=== PATIENT | female | born 1955 | race Caucasian/White ===

== ENCOUNTER 2019-07-12 21:22 | Observation (INO) | payer OTHER ==
[~2019-07-12] VITALS: Ht 170.2 cm; Wt 104.3 kg
[2019-07-12] MEDS ORDERED: ASPIRIN 81 MG CHEW TAB PO ONE (22:15)
[2019-07-12] MEDS ORDERED: LORAZEPAM INJ 2 MG/ML VIAL IV ONE (22:30)
[2019-07-12 22:52] LABS: BASOPHILS % 0.5 % (0.0-1.0); EOSINOPHILS # (AUTO) 0.1 (0.0-0.4); EOSINOPHILS % 1.7 % (0.0-6.0); HEMATOCRIT 38.1 % (34.2-44.1); HEMOGLOBIN 12.7 g/dL (12.0-16.0); LYMPHOCYTES # (AUTO) 2.1 (1.0-3.2); LYMPHOCYTES % 25.6 % (18.0-39.1); MEAN CORPUSCULAR HEMOGLOBIN 31.5 pg (28-32); MEAN CORPUSCULAR HGB CONC 33.3 g/dL (31-35); MEAN CORPUSCULAR VOLUME 94.5 fL (81-99); MONOCYTES # (AUTO) 0.7 (0.2-0.8); MONOCYTES % 8.3 % (4.4-11.3); NEUTROPHILS # (AUTO) 5.1 (2.1-6.9); NEUTROPHILS % 63.5 % (38.7-80.0); PLATELET COUNT 285 x10e3/uL (140-360); RED BLOOD COUNT 4.03 x10e6/uL (3.6-5.1); RED CELL DISTRIBUTION WIDTH 11.9 % (11.7-14.4)
--- NOTE | 2019-07-12 22:59 | Diagnostic Imaging Report ---
Examination: Single AP view of the chest. COMPARISON: None. INDICATION: Chest pressure, chest pain IMPRESSION: 1. Lines and Tubes: None 2. Lungs are grossly clear. No consolidation or effusion. 3. Cardiomediastinal silhouette is normal. Pulmonary vasculature is normal. 4. No acute bony abnormalities. Signed by: Dr. Cam Sesay M.D. on 07/12/2019 10:56 PM
[2019-07-12 23:01] LABS: INR 0.83; PARTIAL THROMBOPLASTIN TIME 20.1 seconds (23.8-35.5); PROTHROMBIN TIME 11.9 seconds (11.9-14.5)
[2019-07-12 23:05] LABS: ALANINE AMINOTRANSFERASE 27 IU/L (0-55); ALBUMIN 3.8 g/dL (3.5-5.0); ALBUMIN/GLOBULIN RATIO 0.8 (0.8-2.0); ALKALINE PHOSPHATASE 131 IU/L (40-150); ANION GAP 16.5 mmol/L (8-16); BLOOD UREA NITROGEN 11 mg/dL (7-26); BUN/CREATININE RATIO 11 (6-25); CALCIUM 10.9 mg/dL (8.4-10.2); CARBON DIOXIDE 24 mmol/L (22-29); CHLORIDE 102 mmol/L (98-107); CREATINE KINASE 71 IU/L (29-168); EST GLOMERULAR FILTRATION RATE 56 ML/MIN (60-); GLUCOSE 117 mg/dL (74-118); POTASSIUM 3.5 mmol/L (3.5-5.1); SODIUM 139 mmol/L (136-145)
[2019-07-12 23:18] LABS: CLARITY,URINE CLOUDY (CLEAR); COLOR,URINE YELLOW (YELLOW); LEUKOCYTE ESTERASE ,URINE TRACE (NEGATIVE)
[2019-07-12 23:19] LABS: BACTERIA,URINE MANY /HPF; BILIRUBIN,URINE NEGATIVE (NEGATIVE); EPITHELIAL CELLS,URINE FEW /LPF; KETONES,URINE TRACE (NEGATIVE); NITRITE,URINE NEGATIVE (NEGATIVE); PROTEIN,URINE DIPSTICK TRACE (NEGATIVE); RBC,URINE 0-5 /HPF (0-5); URINE UROBILINOGEN 0.2 mg/dL (0.2 - 1)
[2019-07-12 23:20] LABS: AMORPHOUS SEDIMENT,URINE MANY (FEW)
[2019-07-13] MEDS ORDERED: LORAZEPAM INJ 2 MG/ML VIAL IV PRN (00:30)
[2019-07-13] MEDS ORDERED: SODIUM CHLORIDE FLUSH 10 ML SYR INJ PRN (00:30)
[2019-07-13] MEDS ORDERED: QUETIAPINE FUMARATE 25 MG TAB PO SCH (00:30)
[2019-07-13] MEDS ORDERED: LORAZEPAM INJ 2 MG/ML VIAL IV ONE (00:30)
[2019-07-13] MEDS ORDERED: CEFTRIAXONE SOD 1 GM/NS 50 ML 50 ML IV SCH (00:30)
[2019-07-13] MEDS ORDERED: ASPIRIN 81 MG CHEW TAB PO ONE (00:30)
[2019-07-13] MEDS ORDERED: ONDANSETRON HCL INJ 2MG/ML 2ML 2 MG/ML VIAL IV PRN (00:30)
[2019-07-13] MEDS ORDERED: MORPHINE SULFATE 2 MG/ML SYR 1ML IV PRN (00:30)
[2019-07-13] MEDS ORDERED: FAMOTIDINE 20 MG/2 ML VIAL IV SCH ×2 (00:30→09:00)
--- OUTSIDE RECORDS SUMMARY | 2019-07-13 00:36 | XMS REPORT ---
[facility] Phone Unavailable Care Team Providers Care Transitional Care Liaison Name Role Phone Iman CHAMBERLAIN Unavailable Unavailable Problems This patient has no known problems. Allergies, Adverse Reactions, Alerts This patient has no known allergies or adverse reactions. Medications This patient has no known medications. Results Test Description Test Time Test Comments Text Results Atomic Results Result Comments CHEST SINGLE (PORTABLE) 2019-07-12 22:55:00 [place] [address] Patient Name: LIZETH VICENTE MR #: [id number] : 1955 Age/Sex: 63/F Req #: [id number] Adm Physician: Ordered by: KATY CHAMBERLAIN MD Report #: [id number] Location: ER Room/Bed: Procedure: [id number] DX/CHEST SINGLE (PORTABLE) Exam Date: 07/12/19 Exam Time: 2219 REPORT STATUS: Signed Examination: Single AP view of the chest. COMPARISON: None. INDICATION: Chest pressure, chest pain IMPRESSION: 1. Lines and Tubes: None 2. Lungs are grossly clear. No consolidation or effusion. 3. Cardiomediastinal silhouette is normal. Pulmonary vasculature is normal. 4. No acute bony abnormalities. Signed by: Dr. Darlene Sesay M.D. on 07/12/2019 10:56 PM Dictated By: DARLENE SESAY MD 53 Transcribed By: VANI on 07/12/192255 COPY TO: KATY CHAMBERLAIN MD
--- NOTE | 2019-07-13 00:59 | NUR ---
pt states she cont to feel anxious, medicated per orders. awake alert skin w/d resp nonlab. nad noted.
--- NOTE | 2019-07-13 01:41 | NUR ---
pt reports feels better after medications. placed on hospital bed for comfort. vss. awake alert skin w/d resp nonlab, nad noted.
[2019-07-13] MEDS ORDERED: MOTRIN800 MG PO (05:44)
[2019-07-13] MEDS ORDERED: LEVOTHYROXINE75 MCG PO (05:44)
[2019-07-13] MEDS ORDERED: CARISOPRODOL350 MG PO (05:44)
[2019-07-13] MEDS ORDERED: NORCO 10-325 T1 EACH PO (05:44)
[2019-07-13] MEDS ORDERED: VITAMIN D400 UNIT PO (05:44)
[2019-07-13] MEDS ORDERED: CYMBALTA60 MG PO (05:44)
[2019-07-13] MEDS ORDERED: ZOLPIDEM TARTRA10 MG PO (05:44)
[2019-07-13] MEDS ORDERED: QUETIAPINE FUM300 MG PO (05:44)
[2019-07-13] MEDS ORDERED: OMEPRAZOLE20 MG PO (05:44)
[2019-07-13] MEDS ORDERED: LOSARTAN POTASS50 MG PO (05:44)
--- NOTE | 2019-07-13 05:45 | NUR ---
AM LABS, COLLECTED AND SENT. AWAKE ALERT SKIN W/D RESP NONLAB. NAD NOTED. DENIES CHEST PAIN OR SOB. VSS. MED RECONCILIATION COMPLETED WITH PATIENT, DR CHAMBERLAIN REVIEWED MED REC
[2019-07-13] MEDS ORDERED: HYDROCODONE/APAP 10MG-325MG TAB PO PRN (06:00)
[2019-07-13] MEDS ORDERED: IBUPROFEN 800 MG PO PRN (06:00)
[2019-07-13 06:11] LABS: CREATINE KINASE 82 IU/L (29-168)
[2019-07-13] MEDS ORDERED: IBUPROFEN 400 MG TAB PO PRN (06:15)
--- NOTE | 2019-07-13 06:56 | NUR ---
REPORT TO HARSHA ROCKWELL
[2019-07-13] MEDS ORDERED: NON-FORMULARY MEDICATION (Duloxetine Hcl (Cymbalta) 60 MG) PO SCH (09:00)
[2019-07-13] MEDS ORDERED: LEVOTHYROXINE SODIUM 75 MCG TAB PO SCH (09:00)
[2019-07-13] MEDS ORDERED: LOSARTAN POTASSIUM PO SCH (09:00)
[2019-07-13] MEDS ORDERED: PANTOPRAZOLE SOD 40 MG TABEC PO SCH (09:00)
[2019-07-13] MEDS ORDERED: LOSARTAN POTASSIUM 25 MG TAB PO SCH (09:00)
[2019-07-13] MEDS ORDERED: CARISOPRODOL 350 MG TAB PO SCH (09:00)
[2019-07-13] MEDS ORDERED: CHOLECALCIFEROL 400 UNIT TAB PO SCH (09:00)
[2019-07-13] MEDS ORDERED: NON-FORMULARY MEDICATION (Cholecalciferol (Vitamin D3) (Vitamin D) 400 UNITS) PO SCH (09:00)
[2019-07-13] MEDS ORDERED: QUETIAPINE FUMARATE 300 MG PO SCH (09:00)
[2019-07-13] MEDS ORDERED: ASPIRIN 81 MG ENTERIC COATED PO SCH (09:00)
[2019-07-13] MEDS ORDERED: QUETIAPINE FUMARATE 100 MG TAB PO SCH (09:00)
[2019-07-13] MEDS ORDERED: DULOXETINE HCL 30 MG DELAYED RELEASE PO SCH (09:00)
[2019-07-13 10:02] VITALS: BP 142/73
[2019-07-13] MEDS ORDERED: NON-FORMULARY MEDICATION (Zolpidem Tartrate 10 MG) PO SCH (21:00)
[2019-07-13] MEDS ORDERED: ZOLPIDEM TARTRATE 10 MG TAB PO SCH (21:00)
== END 2019-07-13 10:07 | disposition home or self-care (01) ==
LOC: ER 21:22 → ERHOLD 07-13 00:25
PROVIDERS: ADMIT Internal Medicine; ATTEND Internal Medicine
DX: N30.00 Acute cystitis without hematuria (principal); R07.9 Chest pain, unspecified; F41.9 Anxiety disorder, unspecified
CPT/HCPCS: 36415 ×2; 71045; 80053; 81001; 82550 ×2; 82553 ×2; 84484 ×2; 85025; 85379; 85610; 85730; 93005; 99284; G0378; J0696; J2060 ×2; S0164

== ENCOUNTER 2020-08-13 17:56 | Emergency (ER) | payer MEDICARE, OTHER ==
[~2020-08-13] VITALS: Ht 167.6 cm; Wt 99.8 kg
[~2020-08-13 17:56] MED LIST: CARISOPRODOL350 MG PO; CYMBALTA60 MG PO; LEVOTHYROXINE75 MCG PO; LOSARTAN POTASS50 MG PO; MOTRIN800 MG PO; NORCO 10-325 T1 EACH PO; OMEPRAZOLE20 MG PO; QUETIAPINE FUM300 MG PO; VITAMIN D400 UNIT PO; ZOLPIDEM TARTRA10 MG PO
[2020-08-13] MEDS ORDERED: BUPROPION HCL100 MG PO (18:10)
[2020-08-13] MEDS ORDERED: IPRATROPIU0.2 MG/1 M (18:10)
[2020-08-13 18:37] LABS: BASOPHILS # (AUTO) 0.1 (0.0-0.1); BASOPHILS % 0.7 % (0.0-1.0); EOSINOPHILS # (AUTO) 0.2 (0.0-0.4); EOSINOPHILS % 2.3 % (0.0-6.0); HEMATOCRIT 38.6 % (34.2-44.1); HEMOGLOBIN 12.6 g/dL (12.0-16.0); LYMPHOCYTES # (AUTO) 2.4 (1.0-3.2); LYMPHOCYTES % 33.8 % (18.0-39.1); MEAN CORPUSCULAR HEMOGLOBIN 31.2 pg (28-32); MEAN CORPUSCULAR HGB CONC 32.6 g/dL (31-35); MEAN CORPUSCULAR VOLUME 95.5 fL (81-99); MONOCYTES # (AUTO) 0.7 (0.2-0.8); MONOCYTES % 9.6 % (4.4-11.3); NEUTROPHILS # (AUTO) 3.7 (2.1-6.9); NEUTROPHILS % 53.2 % (38.7-80.0); PLATELET COUNT 307 x10e3/uL (140-360); RED BLOOD COUNT 4.04 x10e6/uL (3.6-5.1); RED CELL DISTRIBUTION WIDTH 12.1 % (11.7-14.4)
[2020-08-13 19:05] LABS: ALANINE AMINOTRANSFERASE 42 IU/L (0-55); ALBUMIN 3.7 g/dL (3.5-5.0); ALBUMIN/GLOBULIN RATIO 0.7 (0.8-2.0); ALKALINE PHOSPHATASE 102 IU/L (40-150); ANION GAP 15.6 mmol/L (8-16); BLOOD UREA NITROGEN 14 mg/dL (7-26); BUN/CREATININE RATIO 14 (6-25); CALCIUM 10.2 mg/dL (8.4-10.2); CARBON DIOXIDE 22 mmol/L (22-29); CHLORIDE 104 mmol/L (98-107); CREATINE KINASE 55 IU/L (29-168); CREATININE, SERUM 0.99 mg/dL (0.57-1.11); EST GLOMERULAR FILTRATION RATE 56 ML/MIN (60-); GLUCOSE 124 mg/dL (74-118); POTASSIUM 3.6 mmol/L (3.5-5.1); SODIUM 138 mmol/L (136-145)
[2020-08-13] MEDS ORDERED: FUROSEMIDE INJ 10 MG/ML 4 ML VIAL IV ONE (19:45)
[2020-08-13] MEDS ORDERED: FUROSEMIDE INJ 10 MG/ML 2 ML VIAL ONE (20:14)
[2020-08-13] MEDS ORDERED: FUROSEMIDE INJ 10 MG/ML 2 ML VIAL IV ONE (20:15)
[2020-08-13 20:42] VITALS: BP 129/98
== END 2020-08-13 20:49 | disposition home or self-care (01) ==
LOC: ER 18:16
DX: R07.9 Chest pain, unspecified (principal); F41.9 Anxiety disorder, unspecified; R53.81 Other malaise; R06.02 Shortness of breath
CPT/HCPCS: 36415; 71045; 80053; 82550; 82553; 83880; 84484; 85025; 99284; J1940; 93005

== ENCOUNTER 2021-12-28 14:18 | Emergency (ER) | payer MEDICARE, OTHER ==
[~2021-12-28] VITALS: Ht 167.6 cm; Wt 99.8 kg
[~2021-12-28 14:18] MED LIST changes: +BUPROPION HCL100 MG PO; +IPRATROPIU0.2 MG/1 M
[2021-12-28] MEDS ORDERED: LORAZEPAM INJ 2 MG/ML VIAL IV PRN (14:45)
[2021-12-28] MEDS ORDERED: HALOPERIDOL LACTATE 5 MG/ML VIAL IV PRN (14:45)
[2021-12-28 14:52] LABS: BASOPHILS % 0.4 % (0.0-1.0); EOSINOPHILS # (AUTO) 0.2 (0.0-0.4); EOSINOPHILS % 2.3 % (0.0-6.0); HEMATOCRIT 36.2 % (34.2-44.1); HEMOGLOBIN 11.8 g/dL (12.0-16.0); LYMPHOCYTES # (AUTO) 2.5 (1.0-3.2); LYMPHOCYTES % 26.9 % (18.0-39.1); MEAN CORPUSCULAR HEMOGLOBIN 32.1 pg (28-32); MEAN CORPUSCULAR HGB CONC 32.6 g/dL (31-35); MEAN CORPUSCULAR VOLUME 98.4 fL (81-99); MONOCYTES # (AUTO) 0.6 (0.2-0.8); MONOCYTES % 6.1 % (4.4-11.3); NEUTROPHILS # (AUTO) 5.9 (2.1-6.9); NEUTROPHILS % 63.5 % (38.7-80.0); PLATELET COUNT 280 x10e3/uL (140-360); RED BLOOD COUNT 3.68 x10e6/uL (3.6-5.1); RED CELL DISTRIBUTION WIDTH 12.3 % (11.7-14.4)
[2021-12-28 15:12] LABS: ALBUMIN 3.5 g/dL (3.5-5.0); ALBUMIN/GLOBULIN RATIO 0.7 (0.8-2.0); ANION GAP 11.6 mmol/L (8-16); CALCIUM 10.8 mg/dL (8.4-10.2); CREATININE, SERUM 0.82 mg/dL (0.57-1.11); POTASSIUM 3.6 mmol/L (3.5-5.1)
[2021-12-28 15:23] LABS: CLARITY,URINE SL CLOUDY (CLEAR); COLOR,URINE YELLOW (YELLOW); KETONES,URINE NEGATIVE (NEGATIVE); LEUKOCYTE ESTERASE ,URINE NEGATIVE (NEGATIVE); NITRITE,URINE NEGATIVE (NEGATIVE); PROTEIN,URINE DIPSTICK NEGATIVE (NEGATIVE); URINE UROBILINOGEN 0.2 mg/dL (0.2 - 1)
[2021-12-28 15:30] LABS: BACTERIA,URINE RARE /HPF; EPITHELIAL CELLS,URINE RARE /LPF; MUCUS,URINE FEW (RARE)
[2021-12-28] MEDS ORDERED: LORAZEPAM INJ 2 MG/ML VIAL IV ONE ×2 (15:30→18:00)
[2021-12-28] MEDS ORDERED: HALOPERIDOL LACTATE 5 MG/ML VIAL IV ONE ×2 (15:30→18:00)
[2021-12-28] MEDS ORDERED: IOPAMIDOL 370 MG/ML 200 ML INFUS..BTL INJ ONE (15:42)
[2021-12-28] MEDS ORDERED: SODIUM CHLORIDE 0.9% 50ML 50 ML ONE (15:42)
[2021-12-28 15:44] LABS: FREE THYROXINE INDEX 0.8629 (1.4-3.8); THYROID STIMULATING HORMONE 7.08 uIU/mL (0.350-4.940)
[2021-12-28 16:22] LABS: AMPHETAMINES SCREEN,URINE NEGATIVE (NEGATIVE); BENZODIAZEPINES SCREEN,URINE POSITIVE (NEGATIVE); PHENCYCLIDINE SCREEN,URINE NEGATIVE (NEGATIVE)
[2021-12-28 16:27] LABS: SALICYLATE < 5.0 mg/dL (0-30)
== END 2021-12-28 19:35 | disposition other institution (70) ==
LOC: ER 14:38
DX: R41.82 Altered mental status, unspecified (principal); S32.028A Other fracture of second lumbar vertebra, initial encounter for closed fracture; W10.8XXA Fall (on) (from) other stairs and steps, initial encounter; Y93.01 Activity, walking, marching and hiking; Y92.89 Other specified places as the place of occurrence of the external cause; I10 Essential (primary) hypertension; I50.9 Heart failure, unspecified; E03.9 Hypothyroidism, unspecified; F41.9 Anxiety disorder, unspecified
CPT/HCPCS: 36415; 51700; 70450; 71260; 72125; 72129; 72132; 73100 ×2; 73120 ×2; 74177; 80053; 80307; 80320; 80329 ×2; 81001; 84436; 84443; 84479; 84484; 85025; 87086; 93005; 99284; J1630; J2060; Q9967

== ENCOUNTER 2022-04-16 14:20 | Emergency (ER) | payer MEDICARE ==
[~2022-04-16] VITALS: Ht 167.6 cm; Wt 99.8 kg
[2022-04-16 15:17] LABS: BASOPHILS % 0.5 % (0.0-1.0); EOSINOPHILS # (AUTO) 0.1 (0.0-0.4); EOSINOPHILS % 0.9 % (0.0-6.0); HEMATOCRIT 34.2 % (34.2-44.1); HEMOGLOBIN 10.9 g/dL (12.0-16.0); LYMPHOCYTES # (AUTO) 1.4 (1.0-3.2); LYMPHOCYTES % 21.1 % (18.0-39.1); MEAN CORPUSCULAR HEMOGLOBIN 30.1 pg (28-32); MEAN CORPUSCULAR HGB CONC 31.9 g/dL (31-35); MEAN CORPUSCULAR VOLUME 94.5 fL (81-99); MONOCYTES # (AUTO) 0.5 (0.2-0.8); MONOCYTES % 6.9 % (4.4-11.3); NEUTROPHILS # (AUTO) 4.7 (2.1-6.9); PLATELET COUNT 305 x10e3/uL (140-360); RED BLOOD COUNT 3.62 x10e6/uL (3.6-5.1); RED CELL DISTRIBUTION WIDTH 13.1 % (11.7-14.4)
[2022-04-16] MEDS ORDERED: ACETAMINOPHEN 325 MG TAB PO ONE (15:30)
[2022-04-16 15:42] LABS: ALBUMIN 3.2 g/dL (3.5-5.0); ALBUMIN/GLOBULIN RATIO 0.6 (0.8-2.0); ANION GAP 13.3 mmol/L (8-16); CREATININE, SERUM 0.85 mg/dL (0.57-1.11); POTASSIUM 3.3 mmol/L (3.5-5.1)
[2022-04-16] MEDS ORDERED: ACETAMIN/BUTALBITAL/CAFFEINE TAB PO ONE (16:30)
[2022-04-16] MEDS ORDERED: ACETAMIN/BUTALBITAL/CAFFEINE TAB ONE (16:52)
== END 2022-04-16 16:54 | disposition home or self-care (01) ==
LOC: ER 14:22
DX: R20.2 Paresthesia of skin (principal); R51.9 Headache, unspecified; R53.1 Weakness; I11.0 Hypertensive heart disease with heart failure; E03.9 Hypothyroidism, unspecified; F41.9 Anxiety disorder, unspecified; F32.A Depression, unspecified
CPT/HCPCS: 36415; 70450; 80053; 84484; 85025; 99284

== ENCOUNTER 2025-07-07 01:30 | Emergency (ER) | payer MEDICARE ==
[~2025-07-07] VITALS: Ht 167.6 cm; Wt 99.8 kg
[2025-07-07 01:43] VITALS: PULSE 67; RESP 20; TEMP 97.6
[2025-07-07] MEDS ORDERED: ASPIRIN 81 MG CHEW TAB PO ONE (01:45)
[2025-07-07 02:15] LABS: BASOPHILS % 0.5 % (0.0-1.0); EOSINOPHILS % 2.0 % (0.0-6.0); LYMPHOCYTES % 30.8 % (18.0-39.1); MONOCYTES % 6.5 % (4.4-11.3); NEUTROPHILS % 59.5 % (38.7-80.0); RED CELL DISTRIBUTION WIDTH 13.2 % (11.7-14.4)
[2025-07-07 02:33] LABS: EST GLOMERULAR FILTRATION RATE 93 ML/MIN (>=60)
[2025-07-07 03:25] VITALS: BP 150/82; O2SAT 97
== END 2025-07-07 03:20 | disposition home or self-care (01) ==
LOC: ER 01:34
DX: R06.00 Dyspnea, unspecified (principal); F41.9 Anxiety disorder, unspecified; I10 Essential (primary) hypertension; I50.9 Heart failure, unspecified; E03.9 Hypothyroidism, unspecified; F32.A Depression, unspecified; M19.09 Primary osteoarthritis, other specified site; R94.31 Abnormal electrocardiogram [ECG] [EKG]
CPT/HCPCS: 36415; 71045; 80053; 82550; 83690; 83880; 84484; 85025; 93005; 99284